=== PATIENT | female | born 1980 ===

== ENCOUNTER → 2018-05-22 21:18 | Outpatient (REF) | payer OTHER, SELFPAY ==
[2018-05-22 21:20] LABS: RBC Urine None Seen (0-5/HPF); WBC Urine None Seen (0-5/HPF)
[2018-05-22 21:43] LABS: Add Manual Diff / Slide Review NO; Basophils Percent Auto 0.7 % (0-2); Eosinophils Percent Auto 1.2 % (2-4); Hematocrit 37.3 % (36-46); Hemoglobin 11.9 g/dL (12.0-16.0); Lymphocytes Percent Auto 28.8 % (25-40); Mean Corpuscular HGB Conc 31.8 % (30-36); Mean Corpuscular Hemoglobin 22.7 PG (26-34); Mean Corpuscular Volume 71.4 fL (80-100); Monocytes Percent Auto 6.1 % (3-14); Neutrophils Absolute Auto 4900 /uL (3000-5900); Neutrophils Percent Auto 63.2 % (50-75); Platelet Count 283 X10^3/uL (150-400); Red Blood Cell Count 5.22 X10^6/uL (4.0-5.2); Red Cell Distribution Width 15.3 % (11.6-14.8); White Blood Cell Count 7.8 X10^3/uL (4.5-11.0)
[2018-05-22 22:17] LABS: Appearance Urine UA CLEAR; Bilirubin Urine UA NEGATIVE (NEGATIVE); Color Urine UA YELLOW; Glucose Urine UA NEGATIVE (Normal); Ketones Urine UA NEGATIVE (NEGATIVE); Leukocyte Esterase Urine UA NEGATIVE (NEGATIVE); Nitrite Urine UA NEGATIVE (Negative); Occult Blood Urine UA NEGATIVE (Negative); Protein Urine UA NEGATIVE (Negative); Specific Gravity Urine UA 1.025 (1.000-1.035); Urobilinogen Urine UA 0.2 E.U./dL (0.2); pH Urine UA 6.5 (4.5-8.0)
[2018-05-22 22:31] LABS: Alanine Aminotransferase 23 IU/L (9-52); Albumin 4.6 g/dL (3.5-5.0); Albumin Globulin Ratio 1.3 (1.0-2.8); Alkaline Phosphatase 42 U/L (38-126); Aspartate Aminotransferase 22 IU/L (14-36); BUN Creatinine Ratio 15.7 (6-22); Bilirubin Total 0.4 mg/dL (0.2-1.3); Blood Urea Nitrogen 11 mg/dL (7-17); Calcium 9.1 mg/dL (8.4-10.2); Carbon Dioxide 22 mmol/L (22-32); Chloride 102 mmol/L (98-107); Cholesterol 155 mg/dL (140-199); Estimated Glomerular Filt Rate > 60.0 mL/min (>60); Globulin 3.5 g/dL (1.7-4.1); Glucose 79 mg/dL (70-100); HDL Cholesterol 52 mg/dL (40-60); HEMOLYSIS < 15 (0-50); LDL Cholesterol Calculated 77 mg/dL (<100); Sodium 138 mmol/L (137-145); Total Protein 8.1 g/dL (6.3-8.2); Triglycerides 132 mg/dL (35-150)
[2018-05-22 22:40] LABS: Squamous Epithelial Cell Urine 0-1 /HPF
[2018-05-22 22:41] LABS: Bacteria Urine Few (2-10); Culture Indicated Urine Cult Not Indicated; Mucus Urine 1+ (Negative)
[2018-05-22 22:47] LABS: Thyroid Stimulating Hormone 0.74 uIU/mL (0.47-4.68)
== END ==
LOC: LAB 21:18
PROVIDERS: Visit Provider Physician Assistant
DX: Z00.01 Encounter for general adult medical examination with abnormal findings (principal); Z13.89 Encounter for screening for other disorder
CPT/HCPCS: 80053; 80061; 81001; 82728; 84439; 84443; 85025

== ENCOUNTER → 2018-07-24 22:25 | Outpatient (REF) | payer OTHER, SELFPAY ==
[2018-07-25 07:41] LABS: Hemoglobin A1C% w Est Avg Glu 5.5 % (4.0-6.0)
[2018-07-25 08:19] LABS: HEMOLYSIS < 15 (0-50); Iron 115 ug/dL (37-170)
[2018-07-25 08:31] LABS: Percent Iron Saturation 38 % (15-50); Total Iron Binding Capacity 303 ug/dL (265-497); Transferrin 231 mg/dL (206-381)
[2018-07-25 08:59] LABS: Cortisol Random 4.41 ug/dL
== END ==
LOC: LAB 22:25
PROVIDERS: Visit Provider Naturopath
DX: E83.119 Hemochromatosis, unspecified (principal); M79.10 Myalgia, unspecified site; R63.5 Abnormal weight gain; E27.40 Unspecified adrenocortical insufficiency
CPT/HCPCS: 36415; 81256; 82533; 82728; 83036; 83540; 83550

== ENCOUNTER → 2018-11-05 21:25 | Outpatient (ROUT) | payer OTHER, SELFPAY ==
[2018-11-05 22:06] LABS: Alanine Aminotransferase 15 IU/L (9-52); Albumin 4.4 g/dL (3.5-5.0); Albumin Globulin Ratio 1.3 (1.0-2.8); Alkaline Phosphatase 80 U/L (38-126); Aspartate Aminotransferase 32 IU/L (14-36); Bilirubin Total 0.3 mg/dL (0.2-1.3); Blood Urea Nitrogen 12 mg/dL (7-17); Calcium 9.4 mg/dL (8.4-10.2); Carbon Dioxide 22 mmol/L (22-32); Chloride 105 mmol/L (98-107); Estimated Glomerular Filt Rate > 60.0 mL/min (>60); Globulin 3.3 g/dL (1.7-4.1); Glucose 96 mg/dL (70-100); HEMOLYSIS 31 (0-50); Potassium 4.4 mmol/L (3.4-5.1); Sodium 137 mmol/L (137-145); Total Protein 7.7 g/dL (6.3-8.2)
== END ==
PROVIDERS: Visit Provider Naturopath
DX: E83.119 Hemochromatosis, unspecified (principal)
CPT/HCPCS: 36415; 80053; 82728